=== PATIENT | male | born 1970 | race Caucasian/White ===

== ENCOUNTER 2019-02-05 18:31 | Observation (INO) ==
[2019-02-05] MEDS ORDERED: Nitroglycerin 0.4 MG TAB.SUBL SL PRN (18:58)
[2019-02-05] MEDS ORDERED: Aspirin 325 MG TABLET PO ONE (19:00)
--- NOTE | 2019-02-05 19:05 | Emergency Department Note ---
Disposition Clinical Impression: Palpitations, Chest tightness or pressure, Shortness of breath on exertion Disposition: Still a Patient Condition: Good Referrals: NONE,PCP [Non-Partnered Physician] - Forms: ED Satisfaction Letter Time of Disposition: 21:55 General Adult HPI - General Chief complaint: ED Arrhythmia/Palpitations Stated complaint: chest pain, dizziness Time Seen by Provider: 02/05/19 18:33 Source: patient Limitations: no limitations - History of Present Illness HPI Narrative: 48 year old male with PMHx of HTN, hypertriglyceridemia presents with chest pressure and palpitations since 11 AM today. Pressure is in sternum, localized, constant. He also has SOB with exertion and some light-headedness when standing during this time. Patient has a significant family history of cardiac disease with WA in both parents and sibling in their 40s-50s. He had a normal stress echo a couple weeks ago and a cardiac calcium score which showed 480/1000. He denies numbness/tingling, n/v, diaphoresis, changes in bowel/bladder habits. Pt Subjective Complaint: chest pain Pain Scale: 2 - Related Data Home Medications Medication Instructions Recorded Confirmed Lisinopril [Zestril] 5 mg PO HS 06/30/17 06/30/17 Previous Rx's Medication Instructions Recorded Acetaminophen [Tylenol] 500 mg PO Q6HR PRN #20 tablet 03/13/18 Ciprofloxacin [Cipro] 500 mg PO BID #20 tablet 03/13/18 metroNIDAZOLE [Flagyl] 500 mg PO TID #30 tablet 03/13/18 Allergies Allergy/AdvReac Type Severity Reaction Status Date / Time No Known Allergies Allergy Verified 03/13/18 18:37 Review of Systems: Admits chest pressure, SOB with exertion, light-headedness. Denies n/v, numbness/tingling, fevers/chills. All systems ED: reviewed and negative except as stated. Review of Systems: As Per HPI Past Medical History - Past Medical History Medical history: Reports: GERD, hypertension, other Psychiatric history: Reports: no psych history - Social History Smoking Status: Never smoker Smokeless Tobacco Status: No Alcohol use: Reports: none Drug use: Reports: none Physical Exam - General Limitations: no limitations General appearance: alert, in no apparent distress - Chest Chest inspection: Present: normal inspection. Absent: tenderness - Respiratory Respiratory exam: Present: normal lung sounds bilaterally - Cardiovascular Cardiovascular exam: Present: regular rate, normal rhythm - Expanded Cardiovascular Exam Peripheral pulses: 2+: radial (R), radial (L) - Abdominal Exam Abdominal exam: Present: soft, Non-Tender - Extremities Exam Extremities exam: Present: normal capillary refill - Neurological Exam Neurological exam: Present: alert, oriented X3 - Psychiatric Psychiatric exam: Present: normal affect, normal mood - Skin Skin exam: Present: warm, dry Course Course Narrative: Will order CBC, BMP, trop, BNP, D-dimer, chest x-ray. Gave patient aspirin 325 mg, SL nitroglycerin for pain. Vital Signs Temperature 99.2 F 02/05/19 18:48 Pulse Rate 84 02/05/19 18:48 Respiratory Rate 16 02/05/19 18:48 Blood Pressure 184/99 02/05/19 18:48 O2 Sat by Pulse Oximetry 97 02/05/19 18:48 Temperature 99.2 F 02/05/19 18:48 Pulse Rate 73 02/05/19 21:53 Respiratory Rate 18 02/05/19 21:53 Blood Pressure 138/81 02/05/19 21:53 O2 Sat by Pulse Oximetry 98 02/05/19 21:53 Oxygen Delivery Oxygen Delivery Room Air Medical Decision Making - [facility] Narrative Medical decision making narrative: Patient's chest pressure is improved following nitroglycerin. CBC, BMP, and BNP unremarkable. Trop negative. His d-dimer was elevated at 574, he is currently getting chest CT angio to rule out PE. Spoke to Dr. Borjas, who agreed to accept patient to medicine service for chest pain. - Lab Data Result diagrams: 02/05/19 19:00 02/05/19 19:00 Lab Results 02/05/19 02/05/19 02/05/19 Range/Units 19:00 19:00 19:00 WBC 6.7 (4.3-11.1) K/mcL RBC 5.45 (4.19-5.50) M/mcL Hgb 16.4 (12.9-16.9) g/dL Hct 47.8 (37.5-50.1) % MCV 87.7 (83.0-100.0) fL MCH 30.1 (28.0-33.3) pg MCHC 34.3 (31.6-35.5) g/dL RDW 12.9 (11.5-14.5) % Plt Count 221 (140-400) K/mcL MPV 10.4 (9.4-12.4) fL Immature Gran % 0.2 (0-4) % Seg Neutrophils % 47.5 % Lymphocytes % 41.6 % Monocytes % 8.0 % Eosinophils % 2.1 % Basophils % 0.6 % Neutrophils # 3.2 (1.6-8.9) K/mcL Lymphocytes # 2.8 (0.6-4.6) K/mcL Monocytes # 0.5 (0.0-1.3) K/mcL Eosinophils # 0.1 (0.0-0.6) K/mcL Basophils # 0.0 (0.0-0.2) K/mcL D-Dimer (0-500) ng/mLFEU Sodium 139 (136-145) mEq/L Potassium 3.8 (3.5-5.1) mEq/L Chloride 107 (98-107) mEq/L Carbon Dioxide 24 (23-29) mEq/L BUN 12 (6-20) mg/dL Creatinine 0.79 (0.70-1.30) mg/dL Est GFR ( Amer) > 60 (> 60) Est GFR (Non-Af Amer) > 60 (> 60) BUN/Creatinine Ratio 15 (6-26) Glucose 133 H (70-105) mg/dL Calculated Osmolality 290 (280-300) Calcium 9.1 (8.6-10.3) mg/dL Troponin I < 0.03 (< 0.04) ng/mL B-Natriuretic Peptide 21 (Less than 100) pg/mL 02/05/19 Range/Units 19:00 WBC (4.3-11.1) K/mcL RBC (4.19-5.50) M/mcL Hgb (12.9-16.9) g/dL Hct (37.5-50.1) % MCV (83.0-100.0) fL MCH (28.0-33.3) pg MCHC (31.6-35.5) g/dL RDW (11.5-14.5) % Plt Count (140-400) K/mcL MPV (9.4-12.4) fL Immature Gran % (0-4) % Seg Neutrophils % % Lymphocytes % % Monocytes % % Eosinophils % % Basophils % % Neutrophils # (1.6-8.9) K/mcL Lymphocytes # (0.6-4.6) K/mcL Monocytes # (0.0-1.3) K/mcL Eosinophils # (0.0-0.6) K/mcL Basophils # (0.0-0.2) K/mcL D-Dimer 574 H (0-500) ng/mLFEU Sodium (136-145) mEq/L Potassium (3.5-5.1) mEq/L Chloride (98-107) mEq/L Carbon Dioxide (23-29) mEq/L BUN (6-20) mg/dL Creatinine (0.70-1.30) mg/dL Est GFR ( Amer) (> 60) Est GFR (Non-Af Amer) (> 60) BUN/Creatinine Ratio (6-26) Glucose (70-105) mg/dL Calculated Osmolality (280-300) Calcium (8.6-10.3) mg/dL Troponin I (< 0.04) ng/mL B-Natriuretic Peptide (Less than 100) pg/mL S.B.A.R. - S.B.A.R. Transition of Care: Patient to be admitted for chest pressure and shortness of breath on exertion. Extensive family history of cardiac disease. Patient with elevated d-dimer, currently getting CTA. Situation: Demographics Background: Presenting Complaint Assessment: Vital Signs, Course and respsone to treatment, Pertinant Lab Results Recommendation: Recommendation based on pending studies, treatments, or consults S.B.A.R. Report Given to: Donis Henry SSteveB.A.RSteve Repor Time: 21:55 Attestation Statement - Attestation Attestation: Patient was seen with resident physician. I reviewed the history, physical, assessment and plan, and agree with the findings. I also personally evaluated this patient and had [id number] time with this patient. 48-year-old male presents to the emergency Department chief complaint of chest pain and palpitations. Patient states about 11:00 today started developing palpitations and some chest pressure in the mid sternal portion of his chest. H e said he was feeling a little bit dizzy got up trying to walk around had continuation of symptoms. Patient states that the palpitations have decreased a little bit but he continues to have somewhat waxing and waning chest pressure. He recently had a echo stress test, that he said it was read as normal. But his calcium score was high. He was started on Lipitor. Is a very strong family history of coronary artery disease early in life. He is not himself had a heart attack or any other complaints. Has not taken aspirin yet today. Denies fevers chills or shortness of breath or diaphoresis. No nausea vomiting or diarrhea. Review systems as above remainder negative. Physical exam vital signs mild hypertension otherwise stable. ENT is unremarkable. Heart regular rhythm and rate. Lungs clear. Abdomen soft nontender. Extremities unremarkable. Neurologically intact pre-skin no rashes. Psych normal. ED course. Initial EKG showed some PVCs but no acute ischemic changes. Patient be given aspirin and nitroglycerin. Full cardiac panel will be done. Troponin was negative. D-dimer was slightly elevated. This prompted a CT scan of the chest. This was pending at the time of shift change and the patient was signed out to the english professor team to follow up on this test. However before we signed out we did speak with the hospitalist service. They agreed to accept the patie nt for admission. They requested that we call him back if the test is positive only. Hemodynamically the patient was stable he was comfortable with this plan. I agree with resident physician assessment and plan.
[2019-02-05 19:58] LABS: Basophils % 0.6 %; Eosinophils # 0.1 K/mcL (0.0-0.6); Eosinophils % 2.1 %; Hematocrit 47.8 % (37.5-50.1); Hemoglobin 16.4 g/dL (12.9-16.9); Immature Granulocytes % 0.2 % (0-4); Lymphocytes # 2.8 K/mcL (0.6-4.6); Lymphocytes % 41.6 %; Mean Corpuscular HGB Conc 34.3 g/dL (31.6-35.5); Mean Corpuscular Hemoglobin 30.1 pg (28.0-33.3); Mean Corpuscular Volume 87.7 fL (83.0-100.0); Mean Platelet Volume 10.4 fL (9.4-12.4); Monocytes # 0.5 K/mcL (0.0-1.3); Neutrophils # 3.2 K/mcL (1.6-8.9); Platelet Count 221 K/mcL (140-400); Red Blood Count 5.45 M/mcL (4.19-5.50); Red Cell Distribution Width 12.9 % (11.5-14.5); Segmented Neutrophils % 47.5 %
[2019-02-05 20:07] LABS: BUN/Creatinine Ratio 15 (6-26); Blood Urea Nitrogen 12 mg/dL (6-20); Calcium 9.1 mg/dL (8.6-10.3); Carbon Dioxide 24 mEq/L (23-29); Chloride 107 mEq/L (98-107); Glucose 133 mg/dL (70-105); Osmolality,Calculated 290 (280-300); Potassium 3.8 mEq/L (3.5-5.1); Sodium 139 mEq/L (136-145); Troponin I < 0.03 ng/mL (< 0.04); eGFR For Non-African Americans > 60 (> 60)
[2019-02-05] MEDS ORDERED: Isovue-370 500 ML BOTTLE IVP ONE (20:42)
[2019-02-06] MEDS ORDERED: Naloxone 0.4 MG/ML INJ IVP PRN (01:39)
[2019-02-06 02:22] LABS: Hematocrit 46.2 % (37.5-50.1); Hemoglobin 15.4 g/dL (12.9-16.9); Mean Corpuscular HGB Conc 33.3 g/dL (31.6-35.5); Mean Corpuscular Hemoglobin 29.4 pg (28.0-33.3); Mean Corpuscular Volume 88.2 fL (83.0-100.0); Mean Platelet Volume 10.2 fL (9.4-12.4); Platelet Count 205 K/mcL (140-400); Red Blood Count 5.24 M/mcL (4.19-5.50); Red Cell Distribution Width 12.9 % (11.5-14.5)
[2019-02-06 02:30] LABS: BUN/Creatinine Ratio 11 (6-26); Blood Urea Nitrogen 11 mg/dL (6-20); Carbon Dioxide 26 mEq/L (23-29); Chloride 108 mEq/L (98-107); Glucose 111 mg/dL (70-105); Osmolality,Calculated 292 (280-300); Potassium 4.1 mEq/L (3.5-5.1); Sodium 141 mEq/L (136-145); eGFR For Non-African Americans > 60 (> 60)
--- NOTE | 2019-02-06 06:49 | Internal Med History&Physical ---
Date of Encounter: 02/06/19 Time of Encounter: 04:00 Internal Medicine - H&P: HPI Chief complaint: Chest pain Admitted From: Emergency Dept Plans for Post Hospital Care: Home History of present illness: Mr. Kenney is a 48 year old male Patient presented to the emergency room with chest pain and palpitations that began around noon on the day of his admission. The pain was localized in the center of his chest, and did not radiate. He had associated shortness of breath as well. At the time of his chest pain patient states he was watching TV and not exerting himself. He has a significant family history of cardiac disease and MIs in both of his parents as well as his brother. He recently underwent a stress echocardiogram about 2 weeks ago. In the emergency room patient's initial vital signs were within normal limits, CBC and BMP were also within normal limits. Patient's initial troponin was undetectable. Chest x-ray showed no acute cardiopulmonary abnormalities. He did have an elevated d-dimer of [address] angiogram showed no pulmonary embolism or acute pulmonary abnormality. An EKG was performed that showed normal sinus rhythm, some PVCs but no acute ischemic changes. Patient was given a dose of aspirin as well as nitroglycerin and his pain improved. He was sent to the medical floor for further management. Upon my evaluation, patient is resting comfortably in the hospital bed, in no acute distress. He denies chest pain currently, abdominal pain, nausea, vomiting, diarrhea and constipation. He confirms the history above. He follows with his apple turner Dr. Lopes. He is a full code. Past Med Surg Social Fam HX - Past Medical History Medical history: GERD, hypertension, other Psychiatric history: no psych history - Past Surgical History Additional surgical history: zuleyma knee scopes, umbilical hernia, lasix eye surgery, menisectomy - Social History Smoking Status: Never smoker Smokeless Tobacco Status: No Alcohol use: none Drug use: none - Family History Father Living Status: Hx Family Cardiac Disorders: Yes (AAA) Mother Living Status: Still Living Hx Family Cardiac Disorders: Yes (has had 2 SC's) Internal Medicine - H&P: Meds Lisinopril [Zestril] 5 mg PO HS 06/30/17 [History] Acetaminophen [Tylenol] 500 mg PO Q6HR PRN #20 tablet 03/13/18 [Rx] Atorvastatin [Lipitor] 40 mg PO HS 02/05/19 [History] Omeprazole [PriLOSEC] 20 mg PO DAILY 02/05/19 [History] Allergy/AdvReac Type Severity Reaction Status Date / Time No Known Allergies Allergy Verified 03/13/18 18:37 All Systems PM: A 10-system review of systems was performed and is negative for pertinent find ings except as documented above in the HPI. - Constitutional Vitals: Temp Pulse Resp BP Pulse Ox 97.4 F L 62 14 130/76 95 02/06/19 05:31 02/06/19 05:31 02/06/19 05:31 02/06/19 05:31 02/06/19 05:31 General appearance: Present: cooperative, A&O X 3, pleasant, no acute distress, answers questions appropriately Exam: - - Head Head exam: Present: normal inspection - Eye Eye exam: Present: EOMI, normal appearance - Respiratory Respiratory exam: Present: CTAB. Absent: rales, respiratory distress, rhonchi, wheezes - Cardiovascular Cardiovascular exam: Present: RRR. Absent: diastolic murmur, systolic murmur - GI/Abdominal GI/Abdominal exam: Present: normal bowel sounds, soft. Absent: tenderness - Extremities Exam Extremities exam: Present: warm, radial pulses palpable and symmetrical. Absent: calf tenderness, pedal edema, tenderness - Neurological Exam Neurological exam: Present: no focal deficits, strengths equal and symetr throughout. Absent: motor sensory deficit, facial droop, speech deficit - Skin Skin exam: Present: dry, normal color, warm Internal Med - H&P Results - Labs CBC & Chem 7: 02/06/19 02:03 02/06/19 02:03 Labs: Short CBC 02/05/19 02/06/19 Range/Units 19:00 02:03 WBC 6.7 7.0 (4.3-11.1) K/mcL Hgb 16.4 15.4 (12.9-16.9) g/dL Hct 47.8 46.2 (37.5-50.1) % Plt Count 221 205 (140-400) K/mcL Neutrophils # 3.2 (1.6-8.9) K/mcL BMP 02/05/19 02/06/19 19:00 02:03 Sodium 139 141 Potassium 3.8 4.1 Chloride 107 108 H Carbon Dioxide 24 26 BUN 12 11 Creatinine 0.79 0.96 Glucose 133 H 111 H Calcium 9.1 9.0 Cardiac Enzymes 02/05/19 02/06/19 Range/Units 19:00 02:03 Troponin I < 0.03 < 0.03 (< 0.04) ng/mL - Impressions ITS Impressions Chest X-Ray 02/05/19 19:18 IMPRESSION: No acute process. D/ / Garry Stephens MD / Garry Stephens MD Interpreting Provider: Garry Stephens MD Chest CTA 02/05/19 20:42 IMPRESSION: No evidence of pulmonary embolism or acute pulmonary abnormality. D/ / Humberto Dukes MD / Humberto Dukes MD Interpreting Provider: Humberto Dukes MD - Assessment and Plan (1) Chest tightness or pressure Current Visit: Yes Status: Acute Assessment and plan: Chest pain has now resolved. Patient received aspirin as well as nitroglycerin in the ER. He recently underwent a stress echo by his apple turner. Continue cardiac monitoring Continue to trend troponins Cardiology consult in the morning Pain management as needed (2) Palpitations Current Visit: Yes Status: Acute Assessment and plan: Patient had palpitations at home but he has not had them since his arrival. He has had similar palpitations like this in the past. Continue cardiac monitoring Trending troponins Cardiology consult (3) Shortness of breath on exertion Current Visit: Yes Status: Acute Assessment and plan: Patient's O2 saturation was in the high 90s on room air. Patient does not require oxygen at home, and he is not a specific. Chest x-ray and CT angiogram of the chest revealed no acute cardiopulmonary process. Oxygen supplementation as needed Continue to monitor (4) DVT prophylaxis Current Visit: Yes Status: Acute Assessment and plan: Subcutaneous heparin - Time Spent With Patient Total time spent is greater than 50% in coordination of care (as documented) at patient's floor/unit and/or counseling patient: Greater than 35 minutes
--- NOTE | 2019-02-06 08:24 | Cardiology Consult Note ---
Date of Encounter: 02/06/19 Time of Encounter: 10:00 Assessment and Plan (1) Chest pain Current Visit: Yes Status: Resolved C/O chest pain at rest yesterday, has since resolved Serial troponins negative Stress echo from 01/17/19 was negative for ischemia EKG with no ischemic changes, intermittent PVCs noted on EKG and telemetry Low suspicion for ACS, however when risks and benefits of various treatment plans were offered to pt, he elected for LHC. If LHC is negative anticipate he can be discharged later this evening. Continue home Lipitor and Lisinopril Will add daily 81mg ASA and low dose metoprol for further BP control and symptomatic PVCs Qualifiers: Chest pain type: unspecified Qualified Code(s): R07.9 - Chest pain, unspecified (2) Symptomatic PVCs Current Visit: Yes Status: Acute C/O palpitations PVCs visualized on 12 lead EKG as well as telemetry Will add metoprolol for symptomatic control along with further BP control (3) HTN (hypertension) Current Visit: Yes Status: Acute Elevated at 161/87 overnight Continue home Lisinopril Adding metoprolol as above Qualifiers: Hypertension type: essential hypertension Qualified Code(s): I10 - Essential (primary) hypertension Discussion w patient/family: The assessment and plan as outlined above was discussed with the patient and/or family members who expressed understanding and agreement. All questions were answered. Thank you for involving us in the care of your patient. Please call with any questions. History of Present Illness Consult date: 02/06/19 Requesting physician: Ricky Vazquez Consult reason: Chest pain Chief complaint: Chest pain History of present illness: Mr. Kenney is a 48 year old male with PMH of GERD and HTN. He originally presented to the ED the morning of 02/06 for chest pain and palpitations that began while watching tv the previous evening. Described the pain as localized squeezing in the center of his chest. Also states that he felt his heart skipped a beat approximately every 3rd beat. He also experienced some near syncope at this time. Of note he recently underwent a calcium scoring at [facility] per his PCP with pt concerns for CAD due to strong family hx. Due to calcium score results he underwent stress echo with Dr. Lopes on 01/17/19 which was negative for ischemia. Pt seen and examined at bedside. States chest pain has resolved at this time. Denies any fever, chills, cough, or shortness of breath. No edema, or orthopnea. Past Med Surg Social Fam HX - Past Medical History Medical history: GERD, hypertension, other Psychiatric history: no psych history - Past Surgical History Additional surgical history: zuleyma knee scopes, umbilical hernia, lasix eye surgery, menisectomy - Social History Smoking Status: Never smoker Smokeless Tobacco Status: No Alcohol use: none Drug use: none - Family History Father Living Status: Hx Family Cardiac Disorders: Yes (AAA) Mother Living Status: Still Living Hx Family Cardiac Disorders: Yes (has had 2 OH's) Medications and Allergies Lisinopril [Zestril] 5 mg PO HS 06/30/17 [History] Acetaminophen [Tylenol] 500 mg PO Q6HR PRN #20 tablet 03/13/18 [Rx] Atorvastatin [Lipitor] 40 mg PO HS 02/05/19 [History] Omeprazole [PriLOSEC] 20 mg PO DAILY 02/05/19 [History] Allergy/AdvReac Type Severity Reaction Status Date / Time No Known Allergies Allergy Verified 03/13/18 18:37 All Systems Review: The remainder of the systems were reviewed and are negative - Constitutional Constitutional: no chills, no fever(s), no night sweats - EENT Eyes: no blurred vision, no loss of vision Nose, mouth and throat: no sinus pain, no sore throat - Cardiovascular Cardiovascular: chest pain at rest, palpitations, no chest pain with exertion, no diaphoresis, no dyspnea at rest, no dyspnea on exertion, no orthopnea - Respiratory Respiratory: no cough, no dyspnea, no wheezing - Gastrointestinal Gastrointestinal: no abdominal pain, no constipation, no diarrhea - Genitourinary Genitourinary: no dysuria, no hematuria - Musculoskeletal Musculoskeletal: no back pain, no muscle weakness - Integumentary Integumentary: no erythema, no rash, no unusual bruising - Neurological Neurological: no dizziness, no numbness, no tingling - Hematological/Lymphatic Hematologic/Lymphatic: no easy bleeding, no easy bruising Physical Examination Vital Signs, Last 4 Hours Temp Pulse Resp BP Pulse Ox 02/06/19 07:58 97.8 F 62 18 131/87 95 02/06/19 05:31 97.4 F L 62 14 130/76 95 General: Conversant, No Apparent Distress HEENT: Atraumatic, Normocephaly, Mucus Membranes Moist Neck: No JVD, Normal carotid pulses Cardiac: Reg Rate and Rhythm, Normal S1 and S2, No Murmur Lungs: Normal Breath Sounds, No Wheeze, Rales, Rhonchi Neuro: Alert and responsive, No focal deficits noted Abdomen: Soft, Non-Tender Skin: No rashes noted on visualized skin Musculoskeletal: No Chest Wall Tenderness Extremities: No Clubbing, No Cyanosis, No Edema, Normal Pulses Results 02/06/19 02:03 02/06/19 02:03 Lab Results 02/05/19 02/05/19 02/05/19 19:00 19:00 19:00 WBC 6.7 Hgb 16.4 Hct 47.8 Plt Count 221 D-Dimer Sodium 139 Potassium 3.8 Chloride 107 Carbon Dioxide 24 BUN 12 Creatinine 0.79 Glucose 133 H Calcium 9.1 Troponin I < 0.03 B-Natriuretic Peptide 21 02/05/19 02/06/19 02/06/19 19:00 02:03 02:03 WBC 7.0 Hgb 15.4 Hct 46.2 Plt Count 205 D-Dimer 574 H Sodium Potassium Chloride Carbon Dioxide BUN Creatinine Glucose Calcium Troponin I < 0.03 B-Natriuretic Peptide 02/06/19 02:03 WBC Hgb Hct Plt Count D-Dimer Sodium 141 Potassium 4.1 Chloride 108 H Carbon Dioxide 26 BUN 11 Creatinine 0.96 Glucose 111 H Calcium 9.0 Troponin I B-Natriuretic Peptide - Imaging and Cardiology Chest Xray: report reviewed, image reviewed - EKG Interpretation EKG results cardiology: personally reviewed, sinus rhythm, other (PVCs) Consult Discharge Plan - Plan Referrals: Woodrow Marcos DO [Primary Care Provider] -
[2019-02-06] MEDS ORDERED: Verapamil 5 MG/2 ML VIAL ONE (16:08)
[2019-02-06] MEDS ORDERED: *HR* FentaNYL (PF) 100 MCG/2 ML VIAL ONE (16:09)
[2019-02-06] MEDS ORDERED: *HR* Midazolam HCl 2 MG/2 ML VIAL ONE (16:09)
[2019-02-06] MEDS ORDERED: *HR* Heparin 10,000 UNIT/10 ML VIAL ONE (16:09)
[2019-02-06] MEDS ORDERED: Nitroglycerin 1,000 MCG/10 ML VIAL IV ONE (16:10)
[2019-02-06] MEDS ORDERED: Heparin 1,000 UNITS/500 mL 500 ML ONE (16:10)
[2019-02-06] MEDS ORDERED: ISOVUE-370 200 ML INFUS..BTL ONE (16:10)
[2019-02-06] MEDS ORDERED: 0.9 % Sodium Chloride 1,000 ML ONE ×2 (16:10→16:31)
--- NOTE | 2019-02-06 16:41 | Internal Med Progress Note ---
Hospitalist Progress Note - Encounter Date of Encounter: 02/06/19 Time of Encounter: 16:38 - Subjective Interval History: pt was seen and examined at bedside He does c/o intermittent chest discomfort, more like pressure radiating to his left upper back and left shoulder. Denied any SOB He does have lightheadedness and dizziness. - Exam Vitals: Temp Pulse Resp BP Pulse Ox 97.9 F 58 17 133/87 95 02/06/19 14:47 02/06/19 14:47 02/06/19 14:47 02/06/19 14:47 02/06/19 14:47 Exam: Gen: Alert, awake, Oriented to time,place and person Chest: Diminished breath sounds B/L, No wheezing, No crackles, No rales Heart: S1S2+ RRR No murmurs Abd: Soft, NT, BS +, No organomegaly Ext: No edema, pulses are palpable, No calf tenderness Neuro : Benign findings Skin: No rash. - Assessment and Plan (1) Chest pain Current Visit: Yes Status: Acute Assessment and Plan: So far serial troponin from negative he had stress echo done in December patient was evaluated by public area supervisor who recommend to do left heart catheterization today cont other home meds started him on low-dose beta nirmal continue aspirin, Lipitor and Zestril (2) Symptomatic PVCs Current Visit: Yes Status: Acute Assessment and Plan: Started him on low-dose beta nirmal (3) HTN (hypertension) Current Visit: Yes Status: Acute Assessment and Plan: Stable with current medications - Time Spent with Patient Total time spent is greater than 50% in coordination of care (as documented) at patient's floor/unit and/or counseling patient: Internal Medicine: Result - Labs CBC & Chem 7: 02/06/19 02:03 02/06/19 02:03 Labs: Short CBC 02/05/19 02/06/19 Range/Units 19:00 02:03 WBC 6.7 7.0 (4.3-11.1) K/mcL Hgb 16.4 15.4 (12.9-16.9) g/dL Hct 47.8 46.2 (37.5-50.1) % Plt Count 221 205 (140-400) K/mcL Neutrophils # 3.2 (1.6-8.9) K/mcL BMP 02/05/19 02/06/19 19:00 02:03 Sodium 139 141 Potassium 3.8 4.1 Chloride 107 108 H Carbon Dioxide 24 26 BUN 12 11 Creatinine 0.79 0.96 Glucose 133 H 111 H Calcium 9.1 9.0 Cardiac Enzymes 02/05/19 02/06/19 02/06/19 Range/Units 19:00 02:03 08:58 Troponin I < 0.03 < 0.03 < 0.03 (< 0.04) ng/mL - ABG Interpretation ABG results: PT/INR, D-dimer D-Dimer 574 ng/mLFEU (0-500) H 02/05/19 19:00 - Impressions Impressions Chest X-Ray 02/05/19 19:18 IMPRESSION: No acute process. D/ / Garry Stephens MD / Garry Stephens MD Interpreting Provider: Garry Stephens MD Chest CTA 02/05/19 20:42 IMPRESSION: No evidence of pulmonary embolism or acute pulmonary abnormality. D/ / Humberto Dukes MD / Humberto Dukes MD Interpreting Provider: Humberto Dukes MD Consult Discharge Plan - Plan Referrals: Woodrow Marcos DO [Primary Care Provider] - (1) Chest pain Qualifiers: Chest pain type: unspecified Qualified Code(s): R07.9 - Chest pain, unspecified (3) HTN (hypertension) Qualifiers: Hypertension type: essential hypertension Qualified Code(s): I10 - Essential (primary) hypertension
--- NOTE | 2019-02-06 17:30 | Pre-Sedation Evaluation ---
Pre-sedation evaluation - Pre-sedation checklist Date of procedure: 02/06/19 Procedure: [facility] Recent Vitals: Last Vital Signs Temp 97.9 F 02/06/19 14:47 Pulse 58 02/06/19 14:47 Resp 17 02/06/19 14:47 BP 133/87 02/06/19 14:47 Pulse Ox 95 02/06/19 14:47 H&P (including ROS) documented in medical record: Yes Previous reaction to sedatives/anesthetics: No Dietary Status: NPO after Midnight Dentition: No loose teeth or bridges ASA Classification *see protocol: CLASS II-Mild systemic disease Cardiac Registry (Cardio Only) - Functional Capacity Functional Capacity: >=4 METS with symptoms - Clincal Frailty Scale Clinical Frailty Scale: Managing Well
--- NOTE | 2019-02-06 17:38 | Invasive Diagnostic Lab Proc ---
Name: Ted Kenney Date of Study: 02/06/2019 Date: 1970 Ht: 70.1in Medical Record#: [id number] Age: 48 Wt: 231.49lb Gender: Male BSA: 2.22 Order #: [id number] BMI: 33.14 Physicians Procedure Physician: Evangelina Cornejo MD Referring MD: Referring MD: Staff Name Position Time In Sabi Caldwell RT Scrub 04:26 PM Derek Monsalve RN Monitor 04:27 PM Jean Paul Calvert RN Seam Closer 04:27 PM Tucker Ahuja RN Seam Closer 04:27 PM Indications Indication Unstable Angina Procedures Performed Procedure L HRT ARTERY/VENTRICLE ANGIO Pre-Procedure Checklist Informed consent is complete signed and on chart. H&P is on chart. ID band is on and ID verified with patient. Patient NPO for procedure The procedure was described for the patient and questions were answered. Blood Pressure: 144/96 ECG is on chart. Plan of Care Patient will tolerate the procedure without complications. Adequate level of comfort will be maintained. Hemodynamics will remain stable Patient will recover from procedure without complications. Respiratory function will be maintained. Cardiac rhythm will remain stable. Patient temperature will be maintained. Patient and/or family have verbalized understanding of the procedure. Patient Education Intravenous Access Time IV Size Location DC'd Fluid/Drip Rate Units RN 04:17 PM 18g 1 1/" Patent On Arrival Lt Antecubital Allergies No Known Allergies NKA Vital Signs Time BP (mmHg) HR (bpm) O2 Sat. RR (bpm) LOC 04:16 PM 149 / 96 71 97 % 16 5 = Fully awake and oriented or at pre-proc level 04:27 PM / % 5 = Fully awake and oriented or at pre-proc level 04:27 PM / % 4 = Oriented but drowsy 04:42 PM / % 5 = Fully awake and oriented or at pre-proc level 04:31 PM 160 / 95 73 99 % 16 04:36 PM 161 / 104 72 100 % 12 04:41 PM 152 / 93 73 98 % 13 04:46 PM 138 / 85 84 95 % 30 04:51 PM 151 / 86 77 91 % 20 04:56 PM 146 / 87 71 91 % 12 05:01 PM 137 / 84 72 91 % 13 Procedural Medications Time Medication Dose Units Method Given By 04:33 PM Versed 1 mg Intravenous Tucker Ahuja RN 04:33 PM Fentanyl 50 mcg Intravenous Tucker Ahuja RN 04:38 PM Versed 1 mg Intravenous Tucker Ahuja RN 04:38 PM Fentanyl 50 mcg Intravenous Tucker Ahuja RN 04:39 PM Lidocaine 2% 2 ml Subcutaneous Evangelina Cornejo MD 04:44 PM Heparin 4000 units Nitroglycerin 200 mcg Verapamil 2.5 mg Intraarterial Evangelina Cornejo MD ASA Classification: CLASS II- Mild systemic disease (i.e. well-controlled diabetes, hypertension, asthma, cigarette smoking) Roseline Score Preprocedure Postprocedure Activity 2- Moves 4 extremities sustained head lift Activity 2- Moves 4 extremities sustained head lift Circulation 2- SBP +/= 20 points of pre-anesthetic level Circulation 2- SBP +/= 20 points of pre-anesthetic level Consciousness 2- Awake and alert oriented x 3 Consciousness 2- Awake and alert oriented x 3 O2 Saturation 2- Able to maintain O2 satruation of 92% on room air O2 Saturation 2- Able to maintain O2 satruation of 92% on room air Respiratory 2- Able to deep breathe and cough well Respiratory 2- Able to deep breathe and cough well Total Score 10 Total Score 10 Contrast Agent: Isovue Diagnostic Contrast: 82 ml Total Contrast: 82 ml Fluoro Dose: 88 mGy Procedure Log Time Note Enter By 04:26 PM 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 ced 04: PM Physician arrived 16: ced 04: PM ASA Class CLASS II- Mild systemic disease (i.e. well-controlled diabetes, hypertension, asthma, cigarette smoking) ced 04:26 PM Oseas and latoya completed ced 04:26 PM Sign in performed according to hospital policy. Informed consent was obtained. ced 04:26 PM Procedure start 16: ced 04:27 PM Sabi Caldwell RT Position: Scrub Time in: 16: cedwards 04:27 PM Derek Monsalve RN Position: Monitor Time in: 16: cedwards 04:27 PM Jean Paul Calvert RN Position: Seam Closer Time in: : cedwards 04:27 PM Tucker Ahuja RN Position: Seam Closer Time in: 16: cedwards 04: PM Time: 16:27 Patient comfortable and pain free: Yes cedwards 04:27 PM Time: 16:27LOC: 5 = Fully awake and oriented or at pre-proc level cedwards 04:30 PM Vitals capture started with the following parameters, Patient=Adult, Interval=5 min, Initial Vtcpcuvu=828 mmHg, Deflation Rate=3 mmHg, Cuff placed on Right Arm 04:30 PM Case Start 04:30 PM CathStat 04:31 PM HR=73 bpm, HFFC=009/95 mmhg, SpO2=99.0 %, Resp=16 B/min, Comment=NSR 04:32 PM Hair removed from procedure site in procedure lab using clippers. Right wrist/right groin prepped with Chloraprep by Derek Monsalve RN, then patient was draped. Skin intact. cedwards 04:33 PM Recorded ECG: HR=68 Condition=Condition 1 04:33 PM Time: 16:33 Versed 1 mg Intravenous Given by Tucker Ahuja RN cedwards 04:33 PM Time: 16:33 Fentanyl 50 mcg Intravenous Given by Tucker Ahuja RN cedwards 04:36 PM HR=72 bpm, UKGW=274/104 mmhg, EtK1=298.0 %, Resp=12 B/min, EtCO2=35 mmHg 04:38 PM Time: 16:38 Versed 1 mg Intravenous Given by Tucker Ahuja RN cedwards 04:38 PM Time: 16:38 Fentanyl 50 mcg Intravenous Given by Tucker Ahuja RN cedwards 04:39 PM Clinical Presentation: Unstable angina cedwards 04:39 PM Time out was performed according to hospital policy. Conscious sedation and anesthesia was achieved (see medication log with in this report above) cedwards 04:40 PM Time: 16:39 2 ml Lidocaine 2% to right radial Subcutaneous Given by Evangelina Cornejo MD cedwards 04:41 PM HR=73 bpm, MWZV=718/93 mmhg, SpO2=98.0 %, Resp=13 B/min, EtCO2=35 mmHg 04:42 PM Time: 16:27LOC: 4 = Oriented but drowsy cedwards 04:42 PM Time: 16:27 Patient comfortable and pain free: Yes cedwards 04:43 PM Access obtained by percutaneous puncture. 5/6Fr 10cm Terumo Glidesheath sheath placed in right Radial artery. [id number] cedwards 04:44 PM Time: 16:44 Patient given 4,000 units Heparin, 200 mcg Nitroglycerin, and 2.5 mg Verapamil Intraarterial by Evangelina Cornejo MD. This is given to reduce risk of vessel spasm and thrombosis. cedwards 04:45 PM 0.035 145cm Navilyst 3mmJ wire [id number] cedwards 04:45 PM 5Fr FR 4 catheter inserted over the wire DN cedwards 04:46 PM HR=84 bpm, UDRH=653/85 mmhg, SpO2=95.0 %, Resp=30 B/min, EtCO2=34 mmHg 04:47 PM Pressure channel 1 zeroed. 04:47 PM Recorded Pressure: Ao, HR=81, Condition=Condition 1 (Aorta) Ao 116/89/103 04:48 PM RCA angiography performed in multiple views. cedwards 04:49 PM Catheter removed cedwards 04:50 PM 5Fr FL 3.5 catheter inserted over the wire DN cedwards 04:51 PM HR=77 bpm, BVHU=905/86 mmhg, SpO2=91.0 %, Resp=20 B/min, EtCO2=38 mmHg 04:51 PM LCA angiography performed in multiple views. cedwards 04:51 PM Recorded Pressure: Ao, HR=82, Condition=Condition 1 (Aorta) Ao 113/85/99 04:55 PM Catheter removed cedwards 04:56 PM 5Fr Pigtail catheter inserted over the wire DN cedwards 04:56 PM HR=71 bpm, VIIA=700/87 mmhg, SpO2=91.0 %, Resp=12 B/min, EtCO2=41 mmHg 04:57 PM Time: 16:42 Patient comfortable and pain free: Yes cedwards 04:57 PM Time: 16:42LOC: 5 = Fully awake and oriented or at pre-proc level cedwards 04:58 PM Catheter crossed the aortic valve and was selectively placed in the left ventricle. Pressures recorded on pullback for left heart catheterization. cedwards 04:58 PM Recorded Pressure: LV, HR=75, Condition=Condition 1 (Left Ventricle) LV 123/8/9 04:58 PM Recorded Pressure: LV, Ao, HR=72, Condition=Condition 1 (Left Ventricle) LV 107/20/21, (Aorta) Ao 139/85/111 05:01 PM Catheter removed cedwards 05:01 PM HR=72 bpm, TNWS=813/84 mmhg, SpO2=91.0 %, Resp=13 B/min, EtCO2=38 mmHg 05:02 PM Procedure completed at 17:02 02/06/2019 cedwards 05:02 PM Coronary Dominance: right cedwards 05:03 PM Did you address OLIMPIA flow and Dominance? Yes cedwards 05:04 PM Sign out completed: Radiation Dose 974.68 mGy, 88.14 Gy/cm2 Fluoro Time: 4.7 Isovue 370 - 200ml contrast 82 ml given by Evangelina Cornejo MD. Complications: None. 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 Sedation minutes 29. Cardiac Rehab Consult needed: No. Confirmed administered medications: Yes cedwards 05:04 PM Isovue 370 - 200ml,1 Bottle(s) used. cedwards 05:04 PM Arterial sheath pulled, Vasc Band closure device used and was Successful S/N. cedwards 05:04 PM 14 ml air in Vasc Band. cedwards 05:04 PM Estimated Blood Loss: minimal cedwards 05:04 PM Post ECG NSR cedwards 05:04 PM Post Blood Pressure 137/84 cedwards 05:04 PM Information taught Cardiac Cath and Vasc Band cedwards 05:05 PM Education needs Procedure, Plan of Care, and Disease Process cedwards 05:05 PM Learning barriers :None cedwards 05:05 PM Education Methods Verbal cedwards 05:05 PM Education evaluation Able to repeat information cedwards 05:05 PM Site status No bleeding/hematoma - Rt Wrist as reported by Sabi Caldwell RT at 17:05 cedwards 05:05 PM Plavix, Effient or Brilinta given No cedwards 05:06 PM Vitals capture stopped. 05:07 PM Family placed in consult room. cedwards 05:18 PM Report given to Judit DENG Pt taken to 3B Room #41. 17:18 cedwards 05:19 PM Lesion found in Distal RCA. Pre Stenosis: 25 Pre OLIMPIA Flow: cedwards 05:20 PM Lesion found in Mid LAD. Pre Stenosis: 40 Pre OLIMPIA Flow: cedwards 05:20 PM Lesion found in 1st Diagonal. Pre Stenosis: 65 Pre OLIMPIA Flow: cedwards 05:20 PM Lesion found in Distal Circumflex. Pre Stenosis: 40 Pre OLIMPIA Flow: cedwards 05:21 PM Complications: None cedwards 05:22 PM 17:22 Post Pulses Bilateral DP 2+ cedwards 05:22 PM 17:22 Post Pulses Bilateral PT 2+ cedwards 05:22 PM Patient out of room: 17:22 cedwards Complications Complication None None Hemodynamics Pressures Site Systolic/A Wave Diastolic/V Wave Mean AO 116 89 103 AO 113 85 99 LV 123 8 9 LV 107 20 21 AO 139 85 111 Post Procedure Information Blood Pressure: 137/84 mmHg Rhythm: NSR Post procedural instructions were given Closure Device Time Device Success/Fail 02/06/2019 5:18:00 PM Mechanical Compression Successful Site Checks Time Location Status Staff Sheath In? Note 05:05 PM Rt Wrist No bleeding/hematoma Sabi Caldwell RT NO Pulses Time Site Pre-Procedure Post-Procedure Note 02/06/2019 4:16:00 PM Bilateral DP 2+ 02/06/2019 4:16:00 PM Bilateral radial 2+ 5:22:00 PM Bilateral DP 2+ 5:22:00 PM Bilateral PT 2+ Updated by Derek Monsalve RN on 02/06/2019 5:26:18 PM electronically signed on 02/06/2019 5:29:13 PM with status of Final
[2019-02-06] MEDS ORDERED: *HR* Heparin 5,000 UNIT/ML VIAL SQ SCH (18:00)
[2019-02-06 20:20] VITALS: BP 135/75
[2019-02-07] MEDS ORDERED: Aspirin 81 MG TAB.CHEW PO SCH (09:00)
--- NOTE | 2019-02-07 09:08 | Discharge Summary ---
- NOTES TO OUTPATIENT PROVIDER Notes to Outpatient Provider: f/u with PCP in one week. f/u with Cardiology in 1-2 weeks. Please start taking Metoprolol 12.5mg PO BID and Aspirin 81 mg Daily today. Orders not resulted at time of discharge: Pending orders 02/06/19 09:35 NM michell perf SPECT single [NM] Routine Date of Encounter: 02/06/19 Time of Encounter: 18:00 - Discharge Diagnosis (1) Chest pain Priority: Primary Status: Acute Qualifiers: Chest pain type: unspecified Qualified Code(s): R07.9 - Chest pain, unspe cified (2) Symptomatic PVCs Priority: Primary Status: Acute (3) HTN (hypertension) Priority: Secondary Status: Acute Qualifiers: Hypertension type: essential hypertension Qualified Code(s): I10 - Essen tial (primary) hypertension Hospital course: Mr. Kenney is a 48 year old male with PMH of GERD and HTN pt presented to the ED with chest pain and palpitations that began while watching tv the previous evening. Described the pain as localized squeezing in the center of his chest. Also states that he felt his heart skipped a beat approximately every 3rd beat. He also experienced some near syncope at this time. Of note he recently underwent a calcium scoring at [facility] per his PCP with pt concerns for CAD due to strong family hx. Due to calcium score results he underwent stress echo with Dr. Lopes on 01/17/19 which was negative for ischemia. Pt was admitted in the hospital and placed him on tele. His serial troponin were negative. He was evaluated by Cardiology who started him on Metoprolol for frequent PVC's also recommend [facility] for further ishcemic work up. His LHC showed moderate 2 vessel CAD. Recommended aggressive risk factor modification. Pt got d/c home on 02/06/19 night in a stable condition. His rx for Metoprolol and ASA were sent to pharmacy by Cardiology resident. - Time Spent with Patient Total time spent providing and/or coordinating discharge services: - Discharge Medications Prescriptions: New Aspirin 81 mg PO DAILY 30 Days #30 tab.chew Metoprolol [Lopressor] 12.5 mg PO BID 30 Days #60 tablet Continue Lisinopril [Zestril] 5 mg PO HS Omeprazole [PriLOSEC] 20 mg PO DAILY Atorvastatin [Lipitor] 40 mg PO HS No Action Acetaminophen [Tylenol] 500 mg PO Q6HR PRN #20 tablet PRN Reason: Pain Home Medications: Lisinopril [Zestril] 5 mg PO HS 06/30/17 [History] Acetaminophen [Tylenol] 500 mg PO Q6HR PRN #20 tablet 03/13/18 [Rx] Atorvastatin [Lipitor] 40 mg PO HS 02/05/19 [History] Omeprazole [PriLOSEC] 20 mg PO DAILY 02/05/19 [History] Aspirin 81 mg PO DAILY 30 Days #30 tab.chew 02/07/19 [Rx] Metoprolol [Lopressor] 12.5 mg PO BID 30 Days #60 tablet 02/07/19 [Rx] Allergies/Adverse Reactions: Allergy/AdvReac Type Severity Reaction Status Date / Time No Known Allergies Allergy Verified 03/13/18 18:37 Date of admission: 02/05/19 22:30 Primary care physician: Francisco Marcos DO Consults: 02/06/19 06:41 Consult to Cardiology [CONS] Routine Comment: Consulting Provider: [facility] [place] Reason for Consult: Chest pain, recent echo and stress test performed outpatient Call Completed: No - Constitutional Vitals: Temp Pulse Resp BP Pulse Ox 98.1 F 73 18 135/75 93 02/06/19 19:00 02/06/19 20:00 02/06/19 19:00 02/06/19 20:00 02/06/19 19:00 General appearance: Present: cooperative, A&O X 3, pleasant, no acute distress, answers questions appropriately Exam: Gen: Alert, awake, Oriented to time,place and person Chest: Diminished breath sounds B/L, No wheezing, No crackles, No rales Heart: S1S2+ RRR No murmurs Abd: Soft, NT, BS +, No organomegaly Ext: No edema, pulses are palpable, No calf tenderness Neuro : Benign findings Skin: No rash. - Patient Status Disposition: Home, Self-Care Condition: Good - Discharge Instructions Follow Up With: Woodrow Marcos DO [Primary Care Provider] - (Please schedule a follow up appointment with your PCP in 5-7 days) Additional Instructions: RISK FACTORS: STOP SMOKING: If you smoke, STOP. Smoking or tobacco use significantly increases your risk of heart disease because nicotine causes the arteries to narrow or constrict. It also causes fats to stick to the artery. Your chances of having a heart attack are greatly increased if you continue to smoke. For more information, call the education line for smoking cessation [id number] EAT A LOW FAT/CHOLESTEROL/SODIUM DIET: This diet may help reduce your chances of having a heart attack. LIFTING: With affected extremity: Avoid bending, pushing off and lifting more than 2 pounds for 24 hours The following 48 hours, avoid lifting anything more than 5 pounds Avoid strenuous activity or repetitive motions ACTIVITY: You may walk or climb stairs as tolerated You can resume sexual activity as tolerated In general, you are encouraged to engage in a minimum of 30 minutes or more of moderate intensity physical activity, such as brisk walking, daily or at least 3-4 times weekly BATHING Do not submerge the site into water (bath tub, hot tub, swimming pool, dishes) for 1 week. This can be a source for infection into the blood stream. You may shower after 24 hours SITE CARE: After 24 hours, you may remove the dressing and leave the site open to air. Keep the site clean and dry. Clean gently and pat dry. You can expect bruising and tenderness that gradually resolve within a week or two. Return to work as instructed per your physician Resume driving as instructed per physician Keep all scheduled follow up appointments Resume medications as instructed IMPORTANT: If prescribed a Platelet Aggregation Inhibitor such as, Plavix, Brilinta or Effient: Duration of therapy is minimum one year These medications are often used in combination with Aspirin in prevention of future heart attacks Never discontinue unless consult with your Kiln Stacker STROKE (CVA) Risk factors for a stroke are: Age, cigarette smoking, diabetes, excessive alcohol consumption, family history, high blood pressure, overweight, physical inactivity, prior stroke, heart attack, diagnosis of carotid artery stenosis or other artery disease. Warning signs: Sudden numbness or weakness of the face, arm or leg; especially on one side of the body, sudden confusion, trouble speaking or understanding, sudden trouble seeing in one or both eyes, sudden trouble walking, dizziness, loss of balance or coordination, sudden severe headache with no cause. Call 911 or go to the Emergency Room. CONGESTIVE HEART FAILURE: If you have been diagnosed with Congestive Heart Failure (CHF) and your symptoms return, make an appointment with your physician Weigh yourself daily. Notify your physician if you have a weight gain of two or more pounds in one day or five or more pounds in one week. If you experience any difficulty breathing, please call 911 BLEEDING: Although the risk of bleeding is minimal, it can happen. If you have any bleeding from the site, apply firm pressure above the puncture site for 10-15 minutes. If the bleeding does not stop, continue manual pressure and call 911 Contact [facility] ( ) if: You develop a fever greater than 101 degrees Fahrenheit Your site becomes reddened or has any drainage You have an increase in pain or burning at the site or if a large knot forms at the site. If you experience chest pain, shortness of breath, dizziness, or extreme tiredness, stop the activity and rest. Please notify [facility] office if you experience any of these symptoms and they are not relieved by rest please call 911! - Diet and Activity Activity: increase activity as tolerated Diet: low salt diet
--- NOTE | 2019-02-07 16:52 | Electrocardiograph Report ---
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
== END 2019-02-06 21:06 | disposition home or self-care (01) ==
LOC: 3BNU 18:31 → EMEROOARM 18:31 → SUATTDRO 22:30 → 3BNU 23:16
PROVIDERS: ADMIT Family Medicine; ATTEND Family Medicine